=== PATIENT | female | born 1990 | race African-American/Black ===

== ENCOUNTER 2022-06-13 15:05 | Emergency (ER) | payer MEDICAID ==
[~2022-06-13] VITALS: Ht 167.6 cm; Wt 109.0 kg
[2022-06-13 15:55] VITALS: BP 152/87
[2022-06-13 16:53] LABS: BASOPHILS % 0.8 % (0.0-2.0); EOSINOPHILS % 2.4 % (0.0-5.0); HEMATOCRIT. 36.7 % (36.0-48.0); HEMOGLOBIN. 12.5 g/dL (12.0-16.0); MEAN CORPUSCULAR HEMOGLOBIN 30.2 pg (28.0-32.0); MEAN CORPUSCULAR VOLUME 88.8 fL (81.0-99.0); MEAN PLATELET VOLUME 7.6 fl (7.4-10.4); MONOCYTES % 5.9 % (2.0-8.0); NEUTROPHILS % 60.9 % (40.0-76.0); PLATELET 315 x1000/uL (130-400); RED BLOOD CELL COUNT 4.14 mill/uL (4.2-5.4); RED CELL DISTRIBUTION WIDTH 14.5 % (11.6-14.6)
[2022-06-13 17:07] LABS: CHLORIDE 107 mEq/L (98-107)
[2022-06-13 17:32] LABS: B-HCG QUANTITATIVE 23390 mIU/mL (<3)
[2022-06-13 18:37] LABS: CLARITY URINE CLEAR (CLEAR); COLOR URINE YELLOW (YELLOW); KETONES URINE NEGATIVE (NEGATIVE); LEUKOCYTE ESTERASE URINE NEGATIVE (NEGATIVE); NITRITE URINE NEGATIVE (NEGATIVE); OCCULT BLOOD URINE NEGATIVE (NEGATIVE); PROTEIN URINE 1+ (NEGATIVE); SPECIFIC GRAVITY URINE 1.029 (1.005-1.030); UROBILINOGEN URINE 0.2 E.U./dL (0.2-1.0)
== END 2022-06-13 18:45 | disposition home or self-care (01) ==
LOC: ER 15:05
DX: O44.01 Complete placenta previa NOS or without hemorrhage, first trimester (principal); Z3A.11 11 weeks gestation of pregnancy
CPT/HCPCS: 36415; 76801; 76817; 80053; 81003; 81025; 84702; 85025; 86850; 86900; 86901; 99284; Z7610

== ENCOUNTER 2022-08-11 14:07 | Emergency (ER) | payer MEDICAID ==
[~2022-08-11] VITALS: Ht 170.2 cm; Wt 180.0 kg
[2022-08-11 14:28] VITALS: BP 132/78
== END 2022-08-11 18:32 | disposition left against medical advice (07) ==
LOC: ER 14:07
DX: Z53.21 Procedure and treatment not carried out due to patient leaving prior to being seen by health care provider (principal)

== ENCOUNTER 2022-08-31 13:57 | Observation (INO) | payer MEDICAID ==
[~2022-08-31] VITALS: Ht 170.2 cm; Wt 172.4 kg
[2022-08-31 16:09] LABS: CLARITY URINE CLEAR (CLEAR); COLOR URINE YELLOW (YELLOW); KETONES URINE 1+ (NEGATIVE); LEUKOCYTE ESTERASE URINE NEGATIVE (NEGATIVE); NITRITE URINE NEGATIVE (NEGATIVE); OCCULT BLOOD URINE NEGATIVE (NEGATIVE); PH URINE 6.5 (4.5-8.0); PROTEIN URINE NEGATIVE (NEGATIVE); SPECIFIC GRAVITY URINE 1.006 (1.005-1.030); UROBILINOGEN URINE 0.2 E.U./dL (0.2-1.0)
== END 2022-08-31 17:40 | disposition home or self-care (01) ==
LOC: 8 EST A/PP 13:57
PROVIDERS: ADMIT Obstetrics & Gynecology; ATTEND Obstetrics & Gynecology
DX: O26.892 Other specified pregnancy related conditions, second trimester (principal); R10.30 Lower abdominal pain, unspecified; Z3A.22 22 weeks gestation of pregnancy
CPT/HCPCS: 59025; 76805; 81003; G0378; 99281

== ENCOUNTER 2022-10-11 23:59 | Observation (INO) | payer MEDICAID ==
[~2022-10-11] VITALS: Ht 170.2 cm; Wt 174.6 kg
[2022-10-12] MEDS ORDERED: ASPI-1497 PO (00:35)
[2022-10-12] MEDS ORDERED: BLOOD PRESSURE MED (00:35)
[2022-10-12] MEDS ORDERED: PREN1TAB78 PO (00:35)
[2022-10-12 02:36] LABS: CLARITY URINE CLOUDY (CLEAR); COLOR URINE DARK YELLOW (YELLOW); KETONES URINE TRACE (NEGATIVE); LEUKOCYTE ESTERASE URINE TRACE (NEGATIVE); NITRITE URINE NEGATIVE (NEGATIVE); OCCULT BLOOD URINE NEGATIVE (NEGATIVE); PROTEIN URINE 1+ (NEGATIVE); SPECIFIC GRAVITY URINE 1.025 (1.005-1.030)
[2022-10-12] MEDS ORDERED: CITRIC ACID/SODIUM CITRATE SOLN 30ML UDC PO ONE (04:00)
[2022-10-12] MEDS ORDERED: ACETAMINOPHEN 500MG TABLET PO ONE (04:00)
[2022-10-12 04:46] LABS: *AMPHETAMINES SCREEN URINE NEGATIVE (NEGATIVE); *BARBITURATES SCREEN URINE NEGATIVE (NEGATIVE); *BENZODIAZEPINES SCREEN URINE NEGATIVE (NEGATIVE); *COCAINE SCREEN URINE NEGATIVE (NEGATIVE); METHADONE URINE SCREEN NEGATIVE (NEGATIVE); OPIATES URINE SCREEN NEGATIVE (NEGATIVE); PHENCYCLIDINE URINE SCREEN NEGATIVE (NEGATIVE)
[2022-10-12 05:11] LABS: CANNABINOID URINE SCREEN PRESUMTIVE POSITIVE (NEGATIVE)
[2022-10-12 05:44] LABS: HEMOGLOBIN 10.5 g/dL (12.0-16.0); MEAN CORPUSCULAR HEMOGLOBIN 30.3 pg (28.0-32.0); MEAN CORPUSCULAR VOLUME 89.6 fL (81.0-99.0); PLATELET 413 x1000/uL (130-400); RED BLOOD CELL COUNT 3.46 mill/uL (4.2-5.4); RED CELL DISTRIBUTION WIDTH 14.4 % (11.6-14.6)
[2022-10-12 05:51] LABS: CHLORIDE 107 mEq/L (98-107)
[2022-10-12 05:56] LABS: PARTIAL THROMBOPLASTIN TIME 28.8 sec (23.4-31.0); PROTHROMBIN TIME 10.4 sec (9.6-11.0)
== END 2022-10-12 07:20 | disposition home or self-care (01) ==
LOC: 8 EST LDRP 23:59
PROVIDERS: ADMIT Obstetrics & Gynecology; ATTEND Obstetrics & Gynecology
DX: O26.893 Other specified pregnancy related conditions, third trimester (principal); R10.10 Upper abdominal pain, unspecified; Z3A.28 28 weeks gestation of pregnancy; Z79.899 Other long term (current) drug therapy
CPT/HCPCS: 36415; 59025; 76805; 76817; 76818; 80053; 80305; 81003; 82962; 84550; 85027; 85384; 85610; 85730; G0378; 80349; 99281

== ENCOUNTER 2022-12-18 15:27 | Inpatient (IN) | payer MEDICAID ==
[~2022-12-18] VITALS: Ht 170.2 cm; Wt 148.3 kg
[~2022-12-18 15:27] MED LIST: ASPI-1497 PO; BLOOD PRESSURE MED; PREN1TAB78 PO
[2022-12-18 17:54] LABS: BASOPHILS % 0.7 % (0.0-2.0); EOSINOPHILS % 1.5 % (0.0-5.0); HEMATOCRIT. 35.9 % (36.0-48.0); HEMOGLOBIN. 12.1 g/dL (12.0-16.0); LYMPHOCYTES % 21.8 % (20.0-50.0); MEAN CORPUSCULAR HEMOGLOBIN 30.3 pg (28.0-32.0); MEAN CORPUSCULAR VOLUME 89.7 fL (81.0-99.0); MONOCYTES % 10.6 % (2.0-8.0); NEUTROPHILS % 65.4 % (40.0-76.0); PLATELET 357 x1000/uL (130-400); RED CELL DISTRIBUTION WIDTH 14.9 % (11.6-14.6)
[2022-12-18 18:04] LABS: D-DIMER 1.44 mg/L FEU (<0.50); INR 0.9; PARTIAL THROMBOPLASTIN TIME 28.2 sec (23.4-31.0); PROTHROMBIN TIME 10.2 sec (9.6-11.0)
[2022-12-18 19:08] LABS: CHLORIDE 108 mEq/L (98-107)
[2022-12-18 22:23] LABS: CLARITY URINE CLOUDY (CLEAR); COLOR URINE YELLOW (YELLOW); KETONES URINE NEGATIVE (NEGATIVE); LEUKOCYTE ESTERASE URINE NEGATIVE (NEGATIVE); NITRITE URINE NEGATIVE (NEGATIVE); OCCULT BLOOD URINE NEGATIVE (NEGATIVE); PROTEIN URINE 2+ (NEGATIVE); SPECIFIC GRAVITY URINE 1.027 (1.005-1.030)
[2022-12-19 07:56] LABS: BASOPHILS % 0.3 % (0.0-2.0); EOSINOPHILS % 1.8 % (0.0-5.0); HEMATOCRIT. 33.7 % (36.0-48.0); HEMOGLOBIN. 11.8 g/dL (12.0-16.0); LYMPHOCYTES % 25.9 % (20.0-50.0); MEAN CORPUSCULAR HEMOGLOBIN 30.8 pg (28.0-32.0); MEAN CORPUSCULAR VOLUME 88.3 fL (81.0-99.0); MEAN PLATELET VOLUME 7.8 fl (7.4-10.4); MONOCYTES % 11.5 % (2.0-8.0); NEUTROPHILS % 60.5 % (40.0-76.0); PLATELET 342 x1000/uL (130-400); RED BLOOD CELL COUNT 3.81 mill/uL (4.2-5.4); RED CELL DISTRIBUTION WIDTH 14.9 % (11.6-14.6)
[2022-12-19 08:02] LABS: CLARITY URINE CLEAR (CLEAR); COLOR URINE YELLOW (YELLOW); KETONES URINE 1+ (NEGATIVE); LEUKOCYTE ESTERASE URINE NEGATIVE (NEGATIVE); NITRITE URINE NEGATIVE (NEGATIVE); OCCULT BLOOD URINE NEGATIVE (NEGATIVE); PROTEIN URINE 1+ (NEGATIVE); SPECIFIC GRAVITY URINE 1.025 (1.005-1.030); UROBILINOGEN URINE 0.2 E.U./dL (0.2-1.0)
[2022-12-19 08:07] LABS: D-DIMER 1.39 mg/L FEU (<0.50); PROTHROMBIN TIME 10.4 sec (9.6-11.0)
[2022-12-19 08:11] LABS: CHLORIDE 106 mEq/L (98-107)
[2022-12-19] MEDS: NIFEDIPINE XL 30MG TAB PO SCH (09:47)
[2022-12-19] MEDS ORDERED: DEXT 5%/LACTATED RINGERS 1,000 ML IV SCH (10:45)
[2022-12-19] MEDS ORDERED: OXYTOCIN 30 UNITS/500ML NS PMX 500 ML IV SCH (10:45)
[2022-12-19] MEDS ORDERED: NALOXONE HCL 0.4 MG/ML 1ML VIAL IM PRN (10:45)
[2022-12-19] MEDS: LACTATED RINGERS 1,000 ML IV SCH ×2 (10:50→13:27)
[2022-12-20] MEDS: CALCIUM CARBONATE 500MG TABLET CHEW PO PRN (00:25)
[2022-12-20] MEDS: LACTATED RINGERS 1,000 ML IV SCH ×3 (00:25→23:36)
[2022-12-20] MEDS ORDERED: ONDANSETRON HCL 4MG/2ML INJ IV PRN ×2 (08:30→12:00)
[2022-12-20] MEDS: NIFEDIPINE XL 30MG TAB PO SCH (09:44)
[2022-12-20] MEDS ORDERED: MORPHINE SULFATE/PF 1MG/ML 10ML AMP ONE (09:52)
[2022-12-20] MEDS ORDERED: CLINDAMYCIN 900 MG in DEXTROSE 5% WATER 50 ML IV SCH (10:00)
[2022-12-20] MEDS ORDERED: ONDANSETRON HCL 4MG/2ML INJ ONE (10:02)
[2022-12-20] MEDS ORDERED: DEXAMETHASONE 4MG/ML 1ML VIAL ONE (10:02)
[2022-12-20] MEDS ORDERED: OXYTOCIN 10 UNITS/ML 1ML ONE (10:02)
[2022-12-20 10:22] LABS: *AMPHETAMINES SCREEN URINE NEGATIVE (NEGATIVE); *BARBITURATES SCREEN URINE NEGATIVE (NEGATIVE); *BENZODIAZEPINES SCREEN URINE NEGATIVE (NEGATIVE); *COCAINE SCREEN URINE NEGATIVE (NEGATIVE); METHADONE URINE SCREEN NEGATIVE (NEGATIVE); OPIATES URINE SCREEN NEGATIVE (NEGATIVE); PHENCYCLIDINE URINE SCREEN NEGATIVE (NEGATIVE)
[2022-12-20 10:28] LABS: CANNABINOID URINE SCREEN PRESUMTIVE POSITIVE (NEGATIVE)
[2022-12-20] MEDS ORDERED: VANCOMYCIN 1G PREMIX 200 ML IV NR (10:30)
[2022-12-20] MEDS ORDERED: KETOROLAC 60MG/2ML VIAL IM ONE (10:52)
[2022-12-20] MEDS ORDERED: MORPHINE SULFATE 10 MG/ML CPJ IV PRN (11:30)
[2022-12-20] MEDS ORDERED: FENTANYL CITRATE/PF 50MCG/ML 2ML VIAL IV PRN (11:30)
[2022-12-20] MEDS ORDERED: NALOXONE HCL 0.4 MG/ML 1ML VIAL IV PRN (11:30)
[2022-12-20] MEDS ORDERED: PHENYLEPHRINE HCL 10 MG/ML 1ML (IV VIAL) IV ONE (11:42)
[2022-12-20] MEDS ORDERED: EPHEDRINE SULFATE 50MG/ML VIAL ONE (11:53)
[2022-12-20] MEDS ORDERED: DIPHENHYDRAMINE 50MG/ML VIAL ONE (11:54)
[2022-12-20] MEDS ORDERED: OXYTOCIN 30 UNITS/500ML NS PMX 500 ML IV SCH (12:00)
[2022-12-20] MEDS ORDERED: BISACODYL 10MG SUPP PR PRN (12:00)
[2022-12-20] MEDS ORDERED: VANCOMYCIN 1G PREMIX 200 ML IV SCH (12:00)
[2022-12-20] MEDS ORDERED: DIPHENHYDRAMINE 25MG CAPSULE PO PRN (12:00)
[2022-12-20] MEDS ORDERED: LANOLIN OINT 7GM TUBE TOP PRN (12:00)
[2022-12-20] MEDS ORDERED: RHO(D) IMMUNE GLOBULIN 300 MCG/SYR IM PRN (12:00)
[2022-12-20] MEDS ORDERED: IBUPROFEN 400MG TABLET PO PRN (12:00)
[2022-12-20 14:30] VITALS: BP 132/64
[2022-12-20 15:30] VITALS: BP 136/72
[2022-12-20 19:30] VITALS: BP 136/73
[2022-12-20] MEDS: KETOROLAC 30MG/ML VIAL IV SCH (20:39)
[2022-12-20] MEDS: VANCOMYCIN 1250MG in DEXTROSE 5% WATER 250ML IV SCH (20:40)
[2022-12-21] VITALS: BP 135/70
[2022-12-21] MEDS: KETOROLAC 30MG/ML VIAL IV SCH ×2 (02:59→08:52)
[2022-12-21 04:00] VITALS: BP 143/71
[2022-12-21] MEDS: VANCOMYCIN 1250MG in DEXTROSE 5% WATER 250ML IV SCH (04:34)
[2022-12-21 08:00] VITALS: BP 115/68
[2022-12-21 08:31] LABS: BASOPHILS % 0.3 % (0.0-2.0); EOSINOPHILS % 0.2 % (0.0-5.0); HEMATOCRIT. 32.1 % (36.0-48.0); HEMOGLOBIN. 10.9 g/dL (12.0-16.0); LYMPHOCYTES % 13.7 % (20.0-50.0); MEAN CORPUSCULAR HEMOGLOBIN 30.1 pg (28.0-32.0); MEAN CORPUSCULAR VOLUME 88.5 fL (81.0-99.0); MONOCYTES % 7.9 % (2.0-8.0); NEUTROPHILS % 77.9 % (40.0-76.0); PLATELET 343 x1000/uL (130-400); RED BLOOD CELL COUNT 3.63 mill/uL (4.2-5.4); RED CELL DISTRIBUTION WIDTH 14.6 % (11.6-14.6)
[2022-12-21] MEDS: PRENATAL VIT/FE FUMARATE/FA TABLET PO SCH (08:52)
[2022-12-21] MEDS: CALCIUM CARBONATE 500MG TABLET CHEW PO PRN (08:52)
[2022-12-21] MEDS: NIFEDIPINE XL 30MG TAB PO SCH (08:52)
[2022-12-21 16:00] VITALS: BP 134/75
[2022-12-21] MEDS: HYDROCODONE/ACETAMINOPHEN 5/325MG TABLET PO PRN ×2 (16:25→21:35)
[2022-12-21 20:00] VITALS: BP 141/86
[2022-12-21] MEDS: DOCUSATE SODIUM 100MG CAPSULE PO SCH (21:35)
[2022-12-22] MEDS: HYDROCODONE/ACETAMINOPHEN 5/325MG TABLET PO PRN ×2 (02:15→19:37)
[2022-12-22 03:30] VITALS: BP 114/60
[2022-12-22 07:35] VITALS: BP 134/87
[2022-12-22] MEDS: PRENATAL VIT/FE FUMARATE/FA TABLET PO SCH (08:22)
[2022-12-22] MEDS: IBUPROFEN 800MG TABLET PO PRN ×2 (08:22→14:52)
[2022-12-22] MEDS: NIFEDIPINE XL 30MG TAB PO SCH (08:22)
[2022-12-22 08:30] LABS: HEMATOCRIT 31.3 % (36.0-48.0); HEMOGLOBIN 10.9 g/dL (12.0-16.0); MEAN CORPUSCULAR HEMOGLOBIN 30.8 pg (28.0-32.0); MEAN CORPUSCULAR VOLUME 88.8 fL (81.0-99.0); PLATELET 347 x1000/uL (130-400); RED BLOOD CELL COUNT 3.52 mill/uL (4.2-5.4); RED CELL DISTRIBUTION WIDTH 14.8 % (11.6-14.6)
[2022-12-22] MEDS: CALCIUM CARBONATE 500MG TABLET CHEW PO PRN (14:52)
[2022-12-22 15:26] VITALS: BP 141/68
[2022-12-22 19:00] VITALS: BP 149/43
[2022-12-22] MEDS: DOCUSATE SODIUM 100MG CAPSULE PO SCH (19:37)
[2022-12-23 00:01] VITALS: BP 137/72
[2022-12-23] MEDS: HYDROCODONE/ACETAMINOPHEN 5/325MG TABLET PO PRN ×2 (00:41→07:52)
[2022-12-23 03:30] VITALS: BP 147/80
[2022-12-23 07:15] VITALS: BP 157/85
[2022-12-23] MEDS: PRENATAL VIT/FE FUMARATE/FA TABLET PO SCH (07:52)
[2022-12-23] MEDS: NIFEDIPINE XL 30MG TAB PO SCH (09:19)
== END 2022-12-23 09:25 | disposition home or self-care (01) | DRG 540 ==
LOC: 8 EST LDRP 15:27 → OBSVTOIN 15:27 → 8EST 12-20 15:23
PROVIDERS: ADMIT Obstetrics & Gynecology; ATTEND Obstetrics & Gynecology
PROC: 10D00Z1 Extraction of Products of Conception, Low, Open Approach (ICD-10-PCS; principal; 2022-12-20)
DX: O32.1XX0 Maternal care for breech presentation, not applicable or unspecified (principal); O16.4 Unspecified maternal hypertension, complicating childbirth; E66.01 Morbid (severe) obesity due to excess calories; O99.214 Obesity complicating childbirth; Z20.822 Contact with and (suspected) exposure to COVID-19; Z37.0 Single live birth; Z3A.36 36 weeks gestation of pregnancy; Z88.0 Allergy status to penicillin; Z90.49 Acquired absence of other specified parts of digestive tract
CPT/HCPCS: 36415; 76815; 76818; 80053; 80305; 80349; 81003; 84550; 85025; 85027; 85362; 85379; 85384; 86592; 86703; 86705; 86762; 86850; 86900; 87426; 88307; 99281; J1100; J1200; J1885; J2274; J2370; J2405; J3370; J3490; J7060; J7120; Q0163; A4315

== ENCOUNTER 2022-12-25 18:47 | Emergency (ER) | payer MEDICAID ==
[~2022-12-25] VITALS: Ht 170.2 cm; Wt 167.0 kg
[2022-12-25 20:52] LABS: BASOPHILS % 0.7 % (0.0-2.0); EOSINOPHILS % 1.9 % (0.0-5.0); HEMATOCRIT. 31.9 % (36.0-48.0); HEMOGLOBIN. 10.5 g/dL (12.0-16.0); LYMPHOCYTES % 24.7 % (20.0-50.0); MEAN CORPUSCULAR HEMOGLOBIN 29.8 pg (28.0-32.0); MEAN CORPUSCULAR VOLUME 90.6 fL (81.0-99.0); MEAN PLATELET VOLUME 7.3 fl (7.4-10.4); MONOCYTES % 9.1 % (2.0-8.0); NEUTROPHILS % 63.6 % (40.0-76.0); PLATELET 459 x1000/uL (130-400); RED BLOOD CELL COUNT 3.52 mill/uL (4.2-5.4); RED CELL DISTRIBUTION WIDTH 14.9 % (11.6-14.6)
[2022-12-25 20:58] LABS: CHLORIDE 112 mEq/L (98-107)
[2022-12-25] MEDS ORDERED: SODIUM CHLORIDE 0.9% 1,000 ML IV ONE (22:15)
[2022-12-26] MEDS ORDERED: IBUPROFEN 600MG TABLET PO ONE (01:45)
[2022-12-26] MEDS ORDERED: ACETAMINOPHEN 325MG TABLET PO ONE (01:45)
[2022-12-26] MEDS ORDERED: IBUPROFEN 600MG TABLET PO NR (03:30)
[2022-12-26] MEDS ORDERED: ACETAMINOPHEN 325MG TABLET PO NR (03:30)
[2022-12-26 03:42] VITALS: BP 141/86
[2022-12-26] MEDS ORDERED: IOHEXOL-350 100 ML BOTTLE ONE (03:46)
== END 2022-12-26 05:00 | disposition left against medical advice (07) ==
LOC: ER 18:47
DX: O90.0 Disruption of cesarean delivery wound (principal); Z88.0 Allergy status to penicillin
CPT/HCPCS: 36415; 74177; 80053; 81025; 85025; 96360; 99285; J7030; Q9967; Z7610